=== PATIENT | male | born 1965 | race African-American/Black ===

== ENCOUNTER 2017-04-14 12:41 | Emergency (ER) | payer OTHER, SELFPAY ==
[2017-04-14] MEDS ORDERED: Ibuprofen 200 MG TAB ONE (13:04)
[2017-04-14] MEDS ORDERED: Sodium Chloride 0.9% 1,000 ML ONE (13:04)
[2017-04-14] MEDS ORDERED: Azithromycin 250 MG TAB ONE (14:15)
[2017-04-14] MEDS ORDERED: Acetaminophen 500 MG TAB ONE (14:32)
--- NOTE | 2017-04-14 15:13 | RAD ---
CHEST 2 VIEWS: Date: 04/14/17 HISTORY: Chills and red eyes. Cough and fever. COMPARISON: Chest 2 view dated 07/21/14. FINDINGS: Lungs are clear. No pneumothorax or effusion. Cardiac silhouette and mediastinal contour is within n ormal limits. Chronic appearing blunting right lower costophrenic sulcus is similar. IMPRESSION: 1. No acute intrathoracic abnormality. 2. Chronic appearing blunting right lower costophrenic sulcus, may be sequelae of scarring. POS: [facility]
== END 2017-04-14 14:38 | disposition home or self-care (01) ==
LOC: NAV ERS 12:41
DX: J20.9 Acute bronchitis, unspecified (principal); F17.210 Nicotine dependence, cigarettes, uncomplicated
CPT/HCPCS: 71020; 87081; 87430; 94640; 96360; J7050; J7620

== ENCOUNTER 2017-04-16 11:50 | Emergency (ER) | payer SELFPAY ==
[2017-04-16] MEDS ORDERED: Azithromycin 250 MG TAB ONE (12:18)
== END 2017-04-16 12:30 | disposition home or self-care (01) ==
LOC: NAV ERS 11:50
DX: J20.9 Acute bronchitis, unspecified (principal); F17.210 Nicotine dependence, cigarettes, uncomplicated
CPT/HCPCS: 99283

== ENCOUNTER 2018-12-12 12:14 | Emergency (ER) | payer OTHER, SELFPAY ==
[2018-12-12] MEDS ORDERED: Ketorolac Tromethamine 30 MG/ML VIAL ONE (12:37)
--- NOTE | 2018-12-12 13:04 | RAD ---
Exam:4 views left knee HISTORY: Pain. Previous surgery. COMPARISON: None FINDINGS: Incompletely evaluated intramedullary lowell traversing the left femur. 3 interlocking screws are noted at the level of the distal femur. No perihardware lucency. Osteophyte formation/chronic calcifications are identified. No acute fracture. Heterotopic bone formation and callus formation in distal femur is noted Possible loose body fragments in the medial joint space. No significant joint effusion. IMPRESSION: Findings compatible with uncomplicated internal fixation hardware secondary to remote inj ury. Transcribed Date/Time: 12/12/2018 1:08 PM
--- NOTE | 2018-12-12 13:38 | RAD ---
Radiograph left femur 2 views: DATE: 12/12/2018 FINDINGS: Intramedullary nail from subtrochanteric level 2 intercondylar notch into which the distal tip slight ly protrudes. 2 proximal and 3 distal stabilization screws. Chronic, undulating cortical thickening/along mid diaphysis representing chronic healing changes. No fracture lucency visible. The re is a large, vertically elongated osseous excrescence protruding posteriorly from the posterior cortical surface throughout the mid shaft. This includes vertically elongated sword-like excrescence arising from posteromedial aspect of the distal metadiaphysis, traveling superiorly a distance of at least 20 cm to the proximal thigh. IMPRESSION: 1. Status post intramedullary nail fixation of old, healed femoral shaft fracture. 2. Large heterotopic ossification
--- NOTE | 2018-12-12 14:13 | RAD ---
LEFT HIP 2 VIEWS: Date: 12/12/18 HISTORY: Left leg pain. FINDINGS/IMPRESSION: Postop changes and metallic hardware are seen in the left femoral shaft. No acute fracture, dislocati on, or bony destruction is seen in the left hip. No significant arthritic changes are seen. POS: [facility]
== END 2018-12-12 13:55 | disposition home or self-care (01) ==
LOC: NAV ERS 12:14
DX: M79.651 Pain in right thigh (principal); F17.210 Nicotine dependence, cigarettes, uncomplicated
CPT/HCPCS: 96372; J1885

== ENCOUNTER 2019-03-02 09:14 | Emergency (ER) | payer SELFPAY ==
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
== END 2019-03-02 10:20 | disposition home or self-care (01) ==
LOC: NAV ERS 09:14
DX: S20.211A Contusion of right front wall of thorax, initial encounter (principal); F32.9 Major depressive disorder, single episode, unspecified; Z87.891 Personal history of nicotine dependence; W19.XXXA Unspecified fall, initial encounter
CPT/HCPCS: 76705

== ENCOUNTER 2019-06-26 09:59 | Emergency (ER) | payer SELFPAY ==
--- NOTE | 2019-06-26 10:40 | RAD ---
XR Hip Rt 2-3 View HISTORY: Injury, right hip pain FINDINGS: No fracture or dislocation is identified. There is ossification at site of insertion of the rectus fe arya muscle/anterior inferior iliac spine likely due to remote trauma.
== END 2019-06-26 11:00 | disposition home or self-care (01) ==
LOC: NAV ERS 09:59
DX: S70.01XA Contusion of right hip, initial encounter (principal); F32.9 Major depressive disorder, single episode, unspecified; V87.8XXA Person injured in other specified noncollision transport accidents involving motor vehicle (traffic), initial encounter

== ENCOUNTER 2019-07-04 07:58 | Emergency (ER) | payer SELFPAY ==
[2019-07-04 09:13] LABS: #Basophils 0.1 thou/uL (0.0-0.2); #Eosinphils 0.4 thou/uL (0.0-0.7); #Lymphocytes 1.8 thou/uL (1.20-3.40); #Monocytes 0.5 thou/uL (0.11-0.59); #Neutrophils 3.3 thou/uL (1.40-6.50); %Basophils 1.9 % (0.0-1.0); %Lymphocytes 28.8 % (21.0-51.0); %Monocytes 8.3 % (0.0-10.0); %Neutrophils 53.9 % (42.0-75.0); Hemoglobin 14.6 g/dL (14.0-18.0); Mean Corpuscular HGB CONC 32.3 g/dL (32.0-36.0); Mean Corpuscular Hemoglobin 31.1 pg (27.0-31.0); Mean Corpuscular Volume 96.2 fL (78.0-98.0); Mean Platelet Volume 5.2 fL (7.4-10.4); Platelet Count 370 thou/uL (130-400); Red Blood Cell (RBC) Count 4.69 mill/uL (4.70-6.10); White Blood Cell (WBC) Count 6.1 thou/uL (4.8-10.8)
[2019-07-04 09:28] LABS: ALT (SGPT) 26 U/L (8-55); AST (SGOT) 32 U/L (5-34); Albumin 4.7 g/dL (3.5-5.0); Alkaline Phosphatase 100 U/L (40-110); Anion Gap 18 mmol/L (10-20); BUN (Urea Nitrogen) 11 mg/dL (8.4-25.7); Bilirubin, Total 1.1 mg/dL (0.2-1.2); Calc. Creatinine Clearance 0 mL/min (70-130); Calcium 9.8 mg/dL (7.8-10.44); Carbon Dioxide 23 mmol/L (22-29); Chloride 107 mmol/L (98-107); Estimated GFR-MDRD Greater than 90; Globulin 3.6 g/dL (2.4-3.5); Glucose 80 mg/dL (70-105); Lipase 25 U/L (8-78); Potassium 3.8 mmol/L (3.5-5.1); Protein, Total 8.3 g/dL (6.0-8.3); Sodium 144 mmol/L (136-145)
--- NOTE | 2019-07-04 09:34 | RAD ---
EXAM: Two views chest PROVIDED CLINICAL HISTORY: Nausea and vomiting COMPARISON: None FINDINGS: Cardiac and mediastinal silhouette appears within normal limits. Lungs appear free of significant opa city. No pleural fluid or pneumothorax apparent. IMPRESSION: No evidence for an acute cardiopulmonary process.
== END 2019-07-04 10:27 | disposition short-term general hospital (02) ==
LOC: NAV ERS 07:58
DX: R13.10 Dysphagia, unspecified (principal); F32.9 Major depressive disorder, single episode, unspecified; F17.210 Nicotine dependence, cigarettes, uncomplicated
CPT/HCPCS: 71046; 80053; 83690; 85025

== ENCOUNTER 2019-11-15 15:25 | Emergency (ER) | payer SELFPAY | END 2019-11-15 15:43 | disposition home or self-care (01) | LOC: NAV ERS 15:25 | DX: K59.00 Constipation, unspecified (principal); F32.9 Major depressive disorder, single episode, unspecified; F17.210 Nicotine dependence, cigarettes, uncomplicated | CPT/HCPCS: 99281 ==

== ENCOUNTER 2019-11-26 09:06 | Emergency (ER) | payer SELFPAY ==
[2019-11-26] MEDS ORDERED: Adacel (T-DAP) 0.5 ML SYRINGE ONE (09:29)
[2019-11-26] MEDS ORDERED: Ibuprofen 200 MG TAB ONE (09:42)
[2019-11-26] MEDS ORDERED: Triple Antibiotic Oint 1 GM Packet ONE (09:42)
== END 2019-11-26 10:00 | disposition home or self-care (01) ==
LOC: NAV ERS 09:06
DX: S51.812A Laceration without foreign body of left forearm, initial encounter (principal); F32.9 Major depressive disorder, single episode, unspecified; W26.8XXA Contact with other sharp object(s), not elsewhere classified, initial encounter
CPT/HCPCS: 90471; 90715

== ENCOUNTER 2020-03-01 03:31 | Emergency (ER) | payer SELFPAY ==
[2020-03-01] MEDS ORDERED: Ketorolac Tromethamine 60 MG/2 ML VIAL ONE (03:50)
== END 2020-03-01 03:58 | disposition home or self-care (01) ==
LOC: NAV ERS 03:31
DX: M25.512 Pain in left shoulder (principal); M62.830 Muscle spasm of back; M54.2 Cervicalgia; F32.9 Major depressive disorder, single episode, unspecified
CPT/HCPCS: 96372; 99283; J1885

== ENCOUNTER 2020-07-13 11:22 | Emergency (ER) | payer SELFPAY ==
[2020-07-13] MEDS ORDERED: Ketorolac Tromethamine 60 MG/2 ML VIAL ONE (11:48)
== END 2020-07-13 12:05 | disposition home or self-care (01) ==
LOC: NAV ERS 11:22
DX: S13.9XXA Sprain of joints and ligaments of unspecified parts of neck, initial encounter (principal); F17.210 Nicotine dependence, cigarettes, uncomplicated; X58.XXXA Exposure to other specified factors, initial encounter
CPT/HCPCS: 96372; 99283; J1885

== ENCOUNTER 2021-02-01 10:32 | Emergency (ER) | payer SELFPAY ==
[2021-02-01] MEDS ORDERED: Acetaminophen 500 MG TAB ONE (10:56)
[2021-02-01 22:06] LABS: SARS-CoV-2 PCR by NAA Not Detected (NotDetected)
== END 2021-02-01 11:10 | disposition home or self-care (01) ==
LOC: NAV ERS 10:32
DX: K02.9 Dental caries, unspecified (principal); G56.00 Carpal tunnel syndrome, unspecified upper limb; J00 Acute nasopharyngitis [common cold]; Z20.822 Contact with and (suspected) exposure to COVID-19; F17.210 Nicotine dependence, cigarettes, uncomplicated
CPT/HCPCS: 99284; U0003; U0005

== ENCOUNTER 2021-03-01 09:01 | Emergency (ER) | payer SELFPAY ==
[2021-03-01] MEDS ORDERED: HYDROcodone/Acetaminophen 5/325 mg Tablet ONE (10:05)
[2021-03-01 10:49] LABS: Anion Gap 12 mmol/L (10-20); BUN (Urea Nitrogen) 9 mg/dL (8.4-25.7); Calc. Creatinine Clearance 0 mL/min (70-130); Calcium 9.6 mg/dL (7.8-10.44); Carbon Dioxide 27 mmol/L (22-29); Chloride 101 mmol/L (98-107); Glucose 85 mg/dL (70-105); Potassium 4.4 mmol/L (3.5-5.1); Sodium 136 mmol/L (136-145)
[2021-03-01 10:52] LABS: Eosinophils 1 % (0-10); Lymphocytes 28 % (21-51); MDiff Complete? YES; Monocytes 5 % (0-10); Neutrophil 66 % (42-75)
[2021-03-01 10:55] LABS: Hemoglobin 13.7 g/dL (14.0-18.0); Mean Corpuscular HGB CONC 31.4 g/dL (32.0-36.0); Mean Corpuscular Hemoglobin 30.5 pg (27.0-31.0); Mean Corpuscular Volume 97.1 fL (78.0-98.0); Mean Platelet Volume 4.3 fL (7.4-10.4); Platelet Count 334 thou/uL (130-400); RBC Distribution Width 13.1 % (11.5-14.5); White Blood Cell (WBC) Count 4.2 thou/uL (4.8-10.8)
[2021-03-01 10:57] LABS: Platelet Morphology Comment Appears Adequate
[2021-03-01 11:09] LABS: Bilirubin Negative (Negative); Blood, Urine Negative (Negative); Clarity Slightly Cloudy (Clear); Glucose, Urine (Dipstick) Negative (Negative); Ketone, Urine Negative (Negative); Leukocyte Negative (Negative); Nitrite Negative (Negative); Protein, Urine (Dipstick) Negative (Neg-Trace); Specific Gravity, Urine 1.025 (1.005-1.030); pH, Urine 8.5 (5.0-9.0)
== END 2021-03-01 11:16 | disposition short-term general hospital (02) ==
LOC: NAV ERS 09:01
DX: M79.605 Pain in left leg (principal); R60.0 Localized edema; Z87.891 Personal history of nicotine dependence
CPT/HCPCS: 72100; 80048; 81003; 83880; 85025; 93005

== ENCOUNTER 2021-03-07 14:28 | Emergency (ER) | payer SELFPAY ==
[2021-03-07 15:18] LABS: #Lymphocytes 0.2 thou/uL (1.20-3.40); #Monocytes 0.1 thou/uL (0.11-0.59); #Neutrophils 4.5 thou/uL (1.40-6.50); %Basophils 0.1 % (0.0-1.0); %Lymphocytes 4.2 % (21.0-51.0); %Monocytes 2.7 % (0.0-10.0); Hemoglobin 11.5 g/dL (14.0-18.0); Mean Corpuscular HGB CONC 31.6 g/dL (32.0-36.0); Mean Corpuscular Hemoglobin 30.6 pg (27.0-31.0); Mean Corpuscular Volume 96.8 fL (78.0-98.0); Platelet Count 212 thou/uL (130-400); RBC Distribution Width 12.5 % (11.5-14.5); Red Blood Cell (RBC) Count 3.77 mill/uL (4.70-6.10); White Blood Cell (WBC) Count 4.9 thou/uL (4.8-10.8)
[2021-03-07 15:36] LABS: ALT (SGPT) 27 U/L (8-55); AST (SGOT) 39 U/L (5-34); Albumin 3.4 g/dL (3.5-5.0); Alkaline Phosphatase 55 U/L (40-110); Anion Gap 11 mmol/L (10-20); BUN (Urea Nitrogen) 9 mg/dL (8.4-25.7); Bilirubin, Total 0.6 mg/dL (0.2-1.2); Calc. Creatinine Clearance 0 mL/min (70-130); Calcium 8.4 mg/dL (7.8-10.44); Carbon Dioxide 31 mmol/L (22-29); Chloride 92 mmol/L (98-107); Glucose 129 mg/dL (70-105); Lipase 44 U/L (8-78); Potassium 3.6 mmol/L (3.5-5.1); Protein, Total 6.4 g/dL (6.0-8.3); Sodium 130 mmol/L (136-145)
== END 2021-03-07 16:14 | disposition home or self-care (01) ==
LOC: NAV ERS 14:28
DX: U07.1 COVID-19 (principal); J12.82 Pneumonia due to coronavirus disease 2019; Z79.899 Other long term (current) drug therapy
CPT/HCPCS: 71045; 80053; 83605; 83690; 84484; 85025; 93005; 94760

== ENCOUNTER 2021-03-08 02:37 | Emergency (ER) | payer SELFPAY | END 2021-03-08 02:40 | disposition left against medical advice (07) | LOC: NAV ERS 02:37 | DX: U07.1 COVID-19 (principal); G89.29 Other chronic pain; M54.5 Low back pain; J12.82 Pneumonia due to coronavirus disease 2019; Z79.899 Other long term (current) drug therapy | CPT/HCPCS: 99283 ==

== ENCOUNTER 2021-03-09 00:44 | Emergency (ER) | payer SELFPAY | END 2021-03-09 01:45 | disposition home or self-care (01) | LOC: NAV ERS 00:44 | DX: U07.1 COVID-19 (principal) | CPT/HCPCS: 99283 ==

== ENCOUNTER 2023-02-22 01:23 | Emergency (ER) | payer OTHER ==
[2023-02-22 01:59] LABS: #Basophils 0.1 thou/uL (0.0-0.2); #Eosinphils 0.3 thou/uL (0.0-0.7); #Lymphocytes 2.1 thou/uL (1.20-3.40); #Monocytes 0.5 thou/uL (0.11-0.59); #Neutrophils 2.3 thou/uL (1.40-6.50); %Basophils 1.7 % (0.0-1.0); %Eosinophils 6.3 % (0.0-10.0); %Lymphocytes 38.6 % (21.0-51.0); %Neutrophils 43.3 % (42.0-75.0); Hematocrit 30.1 % (42.0-52.0); Hemoglobin 9.8 g/dL (14.0-18.0); Mean Corpuscular HGB CONC 32.6 g/dL (32.0-36.0); Mean Corpuscular Hemoglobin 29.6 pg (27.0-31.0); Mean Corpuscular Volume 90.9 fl (78.0-98.0); Mean Platelet Volume 4.7 fL (7.4-10.4); Platelet Count 201 10x3/uL (130-400); RBC Distribution Width 13.4 % (11.5-14.5); Red Blood Cell (RBC) Count 3.31 mill/uL (4.70-6.10); White Blood Cell (WBC) Count 5.4 10x3/uL (4.8-10.8)
[2023-02-22 02:07] LABS: Bilirubin Small (Negative); Blood, Urine Negative (Negative); Clarity Clear (Clear); Glucose, Urine (Dipstick) Negative (Negative); Ketone, Urine Trace mg/dL (Negative); Leukocyte Negative (Negative); Nitrite Negative (Negative); Protein, Urine (Dipstick) 30 mg/dL (Neg-Trace); Specific Gravity, Urine 1.025 (1.005-1.030); Urobilinogen > or = 8.0 mg/dL (Less than 2); pH, Urine 6.5 (5.0-9.0)
[2023-02-22 02:08] LABS: Bacteria/HPF None Seen HPF (None Seen); CAUTI Indications for Culture Pelvic or flank pain; Mucous/LPF 2+ LPF (<2+); RBC/HPF 0-3 HPF (0-3); Squamous Epithelial 0-3 HPF (0-3); Urine Culture Reflex No No; WBC/HPF None Seen HPF (0-3)
[2023-02-22 02:17] LABS: ALT (SGPT) 35 U/L (8-55); AST (SGOT) 58 U/L (5-34); Albumin 3.4 g/dL (3.5-5.0); Alkaline Phosphatase 61 U/L (40-110); Anion Gap 14 mmol/L (10-20); BUN (Urea Nitrogen) 8 mg/dL (8.4-25.7); Bilirubin, Total 0.6 mg/dL (0.2-1.2); Calc. Creatinine Clearance 0 mL/min (70-130); Calcium 8.6 mg/dL (7.8-10.44); Carbon Dioxide 24 mmol/L (22-29); Chloride 107 mmol/L (98-107); Estimated GFR 107; Globulin 2.8 g/dL (2.4-3.5); Glucose 103 mg/dL (70-105); Potassium 3.3 mmol/L (3.5-5.1); Protein, Total 6.2 g/dL (6.0-8.3); Sodium 142 mmol/L (136-145)
[2023-02-22] MEDS ORDERED: Acetaminophen 500 MG TAB ONE (02:52)
== END 2023-02-22 03:11 | disposition short-term general hospital (02) ==
LOC: NAV ERS 01:23
DX: R22.43 Localized swelling, mass and lump, lower limb, bilateral (principal); D64.9 Anemia, unspecified; E87.6 Hypokalemia
CPT/HCPCS: 71045; 80053; 81001; 83880; 84443; 85025; 85379; 99284

== ENCOUNTER 2023-06-23 18:46 | Emergency (ER) | payer SELFPAY ==
[2023-06-23] MEDS ORDERED: Ketorolac Tromethamine 60 MG/2 ML VIAL ONE (19:04)
[2023-06-23] MEDS ORDERED: Lidocaine Viscous Sol 2% 15 ml UD Cup ONE (19:13)
[2023-06-23] MEDS ORDERED: Mag-Al Plus 1200 MG/1200 MG/120 MG/30 ML UDCUP ONE (19:14)
[2023-06-23] MEDS ORDERED: Ondansetron ODT 4 MG TAB ONE ×2 (19:21→19:23)
== END 2023-06-23 20:18 | disposition home or self-care (01) ==
LOC: NAV ERS 18:46
DX: M79.10 Myalgia, unspecified site (principal); R11.2 Nausea with vomiting, unspecified
CPT/HCPCS: 87804; 93005; 96372; J1885; Q0162

== ENCOUNTER 2024-01-12 18:36 | Emergency (ER) | payer SELFPAY ==
[2024-01-12] MEDS ORDERED: Acetaminophen 500 MG TAB ONE (19:03)
== END 2024-01-12 19:58 ==
LOC: NAV ERS 18:36 → EEVIPCON 18:36 → NAV ERS 19:58
DX: M54.2 Cervicalgia (principal); R51.9 Headache, unspecified; M79.601 Pain in right arm
CPT/HCPCS: 70450; 72125

== ENCOUNTER 2024-02-14 12:35 | Emergency (ER) | payer SELFPAY ==
[2024-02-14] MEDS ORDERED: Furosemide 40 MG TAB ONE (13:01)
[2024-02-14] MEDS ORDERED: Cephalexin 250 MG CAP ONE (13:01)
[2024-02-14] MEDS ORDERED: Fluconazole 100 MG TAB ONE (13:01)
== END 2024-02-14 13:52 | disposition home or self-care (01) ==
LOC: NAV ERS 12:35
DX: R60.0 Localized edema (principal); F32.A Depression, unspecified; Z59.00 Homelessness unspecified

== ENCOUNTER 2024-03-05 04:10 | Emergency (ER) | payer SELFPAY ==
[2024-03-05] MEDS ORDERED: Ibuprofen 800 MG TAB ONE (04:31)
[2024-03-05] MEDS ORDERED: Cephalexin 250 MG CAP ONE (04:31)
== END 2024-03-05 04:39 | disposition home or self-care (01) ==
LOC: NAV ERS 04:10
DX: S71.152A Open bite, left thigh, initial encounter (principal); M79.89 Other specified soft tissue disorders; W54.0XXA Bitten by dog, initial encounter
CPT/HCPCS: 99283

== ENCOUNTER 2024-03-13 20:18 | Emergency (ER) | payer SELFPAY ==
[2024-03-13] MEDS ORDERED: Insulin Regular, Human 100 UNIT/ML 10 ML VIAL ONE (20:27)
[2024-03-13] MEDS ORDERED: Sodium Chloride 0.9% 0 ML ONE (20:27)
[2024-03-13] MEDS ORDERED: guaiFENesin ER 600 MG TAB ONE (20:34)
[2024-03-13] MEDS ORDERED: Ipratropium/Albuterol 3 ML NEB ONE (20:34)
[2024-03-13] MEDS ORDERED: Naproxen 500 MG TAB ONE (20:34)
[2024-03-13 21:02] LABS: SARS-CoV-2 E Target Negative; SARS-CoV-2 N2 Target Negative; SARS-CoV-2 NAA Rapid Test Not Detected (NotDetected); SARS-CoV-2 RdRP gene Negative
[2024-03-13] MEDS ORDERED: cefTRIAXone (ROCEPHIN) 1 GM VIAL ONE (21:33)
[2024-03-13] MEDS ORDERED: methylPREDNISolone Acetate 40 mg/ml Vial ONE (21:33)
[2024-03-13] MEDS ORDERED: Azithromycin 500 MG VIAL ONE (21:33)
[2024-03-13] MEDS ORDERED: Azithromycin 250 MG TAB ONE (21:34)
== END 2024-03-13 22:07 | disposition home or self-care (01) ==
LOC: NAV ERS 20:18
DX: J18.9 Pneumonia, unspecified organism (principal)
CPT/HCPCS: 71046; 87070; 87077; 87186; 87205; 87804; 94640; 96372; J0456; J0696; J1030; J1815; J7030; J7620; U0002

== ENCOUNTER 2024-04-27 12:48 | Emergency (ER) | payer SELFPAY ==
[2024-04-27] MEDS ORDERED: Ketorolac Tromethamine 60 MG/2 ML VIAL ONE (13:27)
== END 2024-04-27 16:02 | disposition home or self-care (01) ==
LOC: NAV ERS 12:48
DX: S20.211A Contusion of right front wall of thorax, initial encounter (principal); Y07.499 Other family member, perpetrator of maltreatment and neglect
CPT/HCPCS: 70450; 71046; 96372; J1885

== ENCOUNTER 2024-05-27 18:27 | Emergency (ER) | payer SELFPAY ==
[~2024-05-27 18:27] MED LIST: Iopamidol 370 76% 100 ML VIAL ONE
[2024-05-27 19:31] LABS: #Basophils 0.1 thou/uL (0.0-0.2); #Eosinophils 0.2 thou/uL (0.0-0.7); #Lymphocytes 1.6 thou/uL (1.20-3.40); #Monocytes 0.4 thou/uL (0.11-0.59); #Neutrophils 1.4 thou/uL (1.40-6.50); %Basophils 2.2 % (0.0-1.0); %Eosinophils 4.8 % (0.0-10.0); %Lymphocytes 43.1 % (21.0-51.0); %Monocytes 11.9 % (0.0-10.0); %Neutrophils 38.1 % (42.0-75.0); Hematocrit 38.2 % (42.0-52.0); Mean Corpuscular HGB CONC 31.5 g/dL (32.0-36.0); Mean Corpuscular Hemoglobin 28.6 pg (27.0-31.0); Mean Corpuscular Volume 90.6 fl (78.0-98.0); Platelet Count 402 10x3/uL (130-400); RBC Distribution Width 14.2 % (11.5-14.5); Red Blood Cell (RBC) Count 4.22 mill/uL (4.70-6.10); White Blood Cell (WBC) Count 3.6 10x3/uL (4.8-10.8)
[2024-05-27 19:40] LABS: ALT (SGPT) 24 U/L (8-55); AST (SGOT) 24 U/L (5-34); Albumin 3.5 g/dL (3.5-5.0); Alkaline Phosphatase 75 U/L (40-110); Anion Gap 14 mmol/L (10-20); BUN (Urea Nitrogen) 10 mg/dL (8.4-25.7); Bilirubin, Total 0.8 mg/dL (0.2-1.2); Calc. Creatinine Clearance 0 mL/min (70-130); Calcium 9.1 mg/dL (7.8-10.44); Carbon Dioxide 29 mmol/L (22-29); Chloride 102 mmol/L (98-107); Estimated GFR 101; Globulin 3.7 g/dL (2.4-3.5); Glucose 73 mg/dL (70-105); Lipase 98 U/L (8-78); Potassium 3.4 mmol/L (3.5-5.1); Protein, Total 7.2 g/dL (6.0-8.3); Sodium 142 mmol/L (136-145); Troponin I 0.024 ng/mL (< 0.028)
[2024-05-27] MEDS ORDERED: Ketorolac Tromethamine 30 MG (1 mL) VIAL ONE (19:55)
[2024-05-27] MEDS ORDERED: Pantoprazole 40 MG VIAL ONE (19:55)
== END 2024-05-27 22:07 | disposition home or self-care (01) ==
LOC: NAV ERS 18:27
DX: K29.70 Gastritis, unspecified, without bleeding (principal)
CPT/HCPCS: 74177; 80053; 83690; 84484; 85025; 93005; 96374; 96375; J1885; J2470; Q9967

== ENCOUNTER 2024-06-01 10:09 | Emergency (ER) | payer SELFPAY | END 2024-06-01 11:22 | disposition left against medical advice (07) | LOC: NAV ERS 10:09 | DX: Z53.21 Procedure and treatment not carried out due to patient leaving prior to being seen by health care provider (principal) ==

== ENCOUNTER 2024-07-14 21:14 | Emergency (ER) | payer SELFPAY ==
[2024-07-14] MEDS ORDERED: Benzonatate 100 MG CAP ONE (22:46)
== END 2024-07-14 23:00 | disposition home or self-care (01) ==
LOC: NAV ERS 21:14
DX: J06.9 Acute upper respiratory infection, unspecified (principal)
CPT/HCPCS: 71046; 87428

== ENCOUNTER 2024-09-02 16:38 | Emergency (ER) | payer SELFPAY ==
[2024-09-02] MEDS ORDERED: Pantoprazole 40 MG VIAL ONE (17:03)
[2024-09-02] MEDS ORDERED: Ipratropium/Albuterol 3 ML NEB ONE (17:03)
[2024-09-02 17:09] LABS: #Basophils 0.1 thou/uL (0.0-0.2); #Eosinophils 0.2 thou/uL (0.0-0.7); #Monocytes 0.4 thou/uL (0.11-0.59); #Neutrophils 7.9 thou/uL (1.40-6.50); %Basophils 0.8 % (0.0-1.0); %Eosinophils 1.9 % (0.0-10.0); %Lymphocytes 10.9 % (21.0-51.0); %Monocytes 4.3 % (0.0-10.0); %Neutrophils 82.1 % (42.0-75.0); Hematocrit 30.9 % (42.0-52.0); Hemoglobin 9.4 g/dL (14.0-18.0); Mean Corpuscular HGB CONC 30.4 g/dL (32.0-36.0); Mean Corpuscular Hemoglobin 26.2 pg (27.0-31.0); Mean Corpuscular Volume 86.1 fl (78.0-98.0); Mean Platelet Volume 4.8 fL (7.4-10.4); Platelet Count 444 10x3/uL (130-400); RBC Distribution Width 13.8 % (11.5-14.5); Red Blood Cell (RBC) Count 3.59 mill/uL (4.70-6.10); White Blood Cell (WBC) Count 9.6 10x3/uL (4.8-10.8)
[2024-09-02 17:32] LABS: ALT (SGPT) 13 U/L (Less than 45); AST (SGOT) 21 U/L (11-34); Albumin 3.5 g/dL (3.1-4.5); Alkaline Phosphatase 71 U/L (40-110); Anion Gap 14 mmol/L (10-20); BUN (Urea Nitrogen) 10 mg/dL (8.4-25.7); Bilirubin, Total 0.7 mg/dL (0.3-1.2); Calc. Creatinine Clearance 0 mL/min (70-130); Calcium 9.5 mg/dL (7.8-10.44); Carbon Dioxide 24 mmol/L (22-29); Chloride 105 mmol/L (98-107); Estimated GFR 106; Globulin 3.4 g/dL (2.4-3.5); Glucose 99 mg/dL (70-105); Potassium 3.9 mmol/L (3.5-5.1); Protein, Total 6.9 g/dL (6.0-8.3); Sodium 139 mmol/L (136-145)
[2024-09-02 17:34] LABS: Troponin I Less than 0.010 ng/mL (< 0.028)
[2024-09-02] MEDS ORDERED: Sodium Chloride 0.9% 100 ML ONE (18:07)
[2024-09-02] MEDS ORDERED: cefTRIAXone (ROCEPHIN) 1 GM VIAL ONE (18:07)
[2024-09-02] MEDS ORDERED: Albuterol 200 PUFF (6.7GM INHALER) ONE (18:48)
== END 2024-09-02 18:55 | disposition home or self-care (01) ==
LOC: NAV ERS 16:38
DX: J18.9 Pneumonia, unspecified organism (principal)
CPT/HCPCS: 71046; 80053; 84484; 85025; 87428; 93005; 94640; 96374; 96375; J0696; J2470; J7620

== ENCOUNTER 2024-09-04 11:41 | Emergency (ER) | payer SELFPAY ==
[2024-09-04] MEDS ORDERED: Sodium Chloride 0.9% 1,000 ML ONE (12:06)
[2024-09-04] MEDS ORDERED: Acetaminophen 500 MG TAB ONE (12:06)
[2024-09-04 12:24] LABS: #Basophils 0.1 thou/uL (0.0-0.2); #Eosinophils 0.6 thou/uL (0.0-0.7); #Lymphocytes 1.4 thou/uL (1.20-3.40); #Monocytes 0.7 thou/uL (0.11-0.59); #Neutrophils 3.2 thou/uL (1.40-6.50); %Lymphocytes 23.3 % (21.0-51.0); %Monocytes 11.5 % (0.0-10.0); %Neutrophils 54.2 % (42.0-75.0); Hemoglobin 9.2 g/dL (14.0-18.0); Mean Corpuscular HGB CONC 29.7 g/dL (32.0-36.0); Mean Corpuscular Hemoglobin 25.7 pg (27.0-31.0); Mean Corpuscular Volume 86.6 fl (78.0-98.0); Mean Platelet Volume 4.7 fL (7.4-10.4); Platelet Count 422 10x3/uL (130-400); RBC Distribution Width 14.4 % (11.5-14.5); Red Blood Cell (RBC) Count 3.59 mill/uL (4.70-6.10); White Blood Cell (WBC) Count 5.9 10x3/uL (4.8-10.8)
[2024-09-04 12:34] LABS: Prothrombin Time 12.8 sec (12.0-14.7)
[2024-09-04 12:35] LABS: PTT 34.1 sec (22.9-36.1)
[2024-09-04 12:37] LABS: ALT (SGPT) 12 U/L (Less than 45); AST (SGOT) 27 U/L (11-34); Albumin 3.4 g/dL (3.1-4.5); Alkaline Phosphatase 67 U/L (40-110); Anion Gap 13 mmol/L (10-20); BUN (Urea Nitrogen) 11 mg/dL (8.4-25.7); Bilirubin, Total 0.5 mg/dL (0.3-1.2); Calc. Creatinine Clearance 0 mL/min (70-130); Calcium 9.4 mg/dL (7.8-10.44); Carbon Dioxide 25 mmol/L (22-29); Chloride 107 mmol/L (98-107); Estimated GFR 103; Globulin 3.6 g/dL (2.4-3.5); Glucose 96 mg/dL (70-105); Potassium 4.2 mmol/L (3.5-5.1); Sodium 141 mmol/L (136-145)
== END 2024-09-04 13:45 | disposition home or self-care (01) ==
LOC: NAV ERS 11:41
DX: J18.9 Pneumonia, unspecified organism (principal); R91.1 Solitary pulmonary nodule
CPT/HCPCS: 71275; 80053; 85025; 85610; 85730; J7030; Q9967

== ENCOUNTER 2025-05-03 10:13 | Emergency (ER) | payer SELFPAY | END 2025-05-03 11:15 | disposition home or self-care (01) | LOC: NAV ERS 10:13 | DX: S76.911A Strain of unspecified muscles, fascia and tendons at thigh level, right thigh, initial encounter (principal); X58.XXXA Exposure to other specified factors, initial encounter | CPT/HCPCS: 96372; 99283; J1885 ==